=== PATIENT | female | born 1945 | race American Indian/Alaskan Native ===

== ENCOUNTER 2021-04-05 09:52 | Outpatient (CLI) | payer MEDICARE ==
--- NOTE | 2021-04-05 11:43 | Magnetic Resonance Report ---
MRI LUMBAR SPINE 04/05/2021 INDICATION / CLINICAL INFORMATION: RADICULOPATHY--RT HIP PAIN. COMPARISON: None available. FINDINGS: GENERAL OBSERVATIONS: Unenhanced MR images of the lumbar spine were obtained. Multilevel degenerative disc and facet changes are present throughout the lumbar spine. Prominent end plate invaginations are present at all levels. There is no evidence of acute abnormality. [id number] ANALYSIS: L5-S1: Moderate diffuse disc bulging and right paracentral disc herniation/extruded fragment is prese nt. L4-5: Grade 1 anterolisthesis associated with moderate diffuse disc bulging and facet degenerative ch anges. Moderately severe central canal narrowing with no evidence of lateralization. L3-4: Moderate diffuse disc bulging and mild facet degenerative changes. Moderately severe central ca nal narrowing. L2-3: Moderate diffuse disc bulging and moderate central canal narrowing. There is a right far latera l disc protrusion, with mild narrowing of the neural foramen. There is no definite evidence of nerve root compression. L1-2: Mild symmetric diffuse disc bulging. BONE MARROW: Degenerative changes. SPINAL CORD/CAUDA EQUINA: Unremarkable PARASPINAL SOFT TISSUES: No significant abnormality. IMPRESSION: Multilevel degenerative changes as described above. Right paracentral disc herniation/extruded fragment at L5-S1. Right lateral disc protrusion at L2-3, with no definite nerve root compression. Signer Name: Ba Carlson MD Signed: 04/05/2021 11:39 AM Workstation Name: [id number]
== END 2021-04-05 09:53 | disposition home or self-care (01) ==
LOC: MRI 09:52
PROVIDERS: ATTEND Anesthesiology Pain Medicine
DX: M51.17 Intervertebral disc disorders with radiculopathy, lumbosacral region (principal); M47.817 Spondylosis without myelopathy or radiculopathy, lumbosacral region; M48.061 Spinal stenosis, lumbar region without neurogenic claudication
CPT/HCPCS: 72148